=== PATIENT | female | born 1990 | race Caucasian/White ===

== ENCOUNTER 2017-02-28 23:36 | Emergency (ER) | payer SELFPAY ==
[2017-02-28] MEDS ORDERED: NS 1,000 ML IV ONE (23:54)
[2017-02-28] MEDS ORDERED: ONDANSETRON 4 MG/2 ML VIAL IVP ONE (23:55)
[2017-03-01] MEDS ORDERED: HYDROmorphONE/DILAUDID 1 MG/ML INJ IVP ONE (00:22)
[2017-03-01 00:33] LABS: PLATELET COUNT 200 10^3/uL (150-400)
[2017-03-01 01:36] VITALS: RESP 18; O2SAT 94
--- NOTE | 2017-03-01 02:21 | EDPHY ---
H & P Stated Complaint: c/o R flank pain that started to spread higher and into back since 1500 Time Seen by Provider: 03/01/17 00:17 HPI/ROS: HPI The patient presents with right-sided flank pain which began at 3:00 p.m. and got progressively worse over the last several hours. It is associated with nausea, low-grade fever. The pain radiates toward her right lower quadrant. She has not had any vomiting or diarrhea. She does report some urinary frequency, however denies dysuria. She has no history of urinary tract infection. She denies any vaginal discharge.. REVIEW OF SYSTEMS Constitutional: No fever, no chills. Eyes: No discharge. ENT: No sore throat. Cardiovascular: No chest pain, no palpitations. Respiratory: No cough, no shortness of breath. Gastrointestinal: See HPI Genitourinary: No hematuria. Musculoskeletal: No back pain. Skin: No rashes. Neurological: No headache. PMHx: Healthy Soc Hx: Lives at home with her PHYSICAL General Appearance: Alert, no distress Eyes: Pupils equal and round no pallor or injection ENT, Mouth: Mucous membranes moist Respiratory: There are no retractions, lungs are clear to auscultation Cardiovascular: Regular rate and rhythm Gastrointestinal: Abdomen is soft and with mild right lower quadrant tenderness r, no masses, bowel sounds normal Back: There is right-sided CVA tenderness Neurological: A&O, moves all extremities Skin: Warm and dry, no rashes Musculoskeletal: Neck is supple non tender Extremities: symmetrical, full range of motion Psychiatric: Patient is oriented X 3, there is no agitation Source: Patient Exam Limitations: No limitations - Medical/Surgical History Hx Asthma: No Hx Chronic Respiratory Disease: No Hx Diabetes: No Hx Cardiac Disease: No Hx Renal Disease: No Hx Cirrhosis: No Hx Alcoholism: No Hx HIV/AIDS: No Hx Splenectomy or Spleen Trauma: No Other PMH: none - Social History Smoking Status: Never smoked Constitutional: Initial Vital Signs Temperature (C) 37.1 C 02/28/17 23:40 Heart Rate 70 02/28/17 23:40 Respiratory Rate 16 02/28/17 23:40 Blood Pressure 119/83 H 02/28/17 23:40 O2 Sat (%) 99 02/28/17 23:40 O2 Delivery Mode Room Air Allergies/Adverse Reactions: No Known Allergies Allergy (Unverified 02/28/17 23:43) Home Medications: Medication Instructions Recorded levOFLOXACIN [Levofloxacin] 750 mg PO DAILY #7 tablet 03/01/17 Medical Decision Making - Diagnostics Imaging Results: Ultrasound retroperitoneal in right lower quadrant demonstrates significant amount of debris in the bladder, no hydronephrosis, no signs of appendicitis, discussed with the radiologist. Imaging: Discussed imaging studies w/ electrician sound Radiologist Differential Diagnosis: 26-year-old healthy female presents with several hours of progressive right- sided flank pain which radiates toward her abdomen associated with nausea. On exam, she is somewhat uncomfortable appearing, she does have right-sided CVA tenderness and mild tenderness in the right lower quadrant. Differential diagnosis includes pyelonephritis, cystitis, nephrolithiasis, appendicitis, less likely ovarian cyst with torsion. In the emergency department, patient was given IV fluids and pain medication. Labs were checked and were consistent with urinary tract infection. Ultrasound performed demonstrates large amount of debris in bladder consistent with urinary infection. I feel she likely has pyelonephritis given her flank pain. She was given a dose of ceftriaxone here and I will discharge her on Levaquin per our antibiotic g. She is in agreement with this plan. She is advised of return precautions. She is able to tolerate fluids. - Data Points Laboratory Results: Laboratory Results 03/01/17 00:15 03/01/17 00:15 Medications Given: Discontinued Medications Hydromorphone HCl (Dilaudid) 0.5 mg IVP EDNOW ONE Stop: 03/01/17 00:23 Last Admin: 03/01/17 00:29 Dose: 0.5 mg Sodium Chloride (Ns) 1,000 mls @ 0 mls/hr IV EDNOW ONE; Wide Open PRN Reason: Protocol Stop: 02/28/17 23:55 Last Admin: 03/01/17 00:09 Dose: 1,000 mls Ceftriaxone Sodium/Dextrose (Rocephin 1 Gm (Premix)) 50 mls @ 100 mls/hr IV EDNOW ONE PRN Reason: Protocol Stop: 03/01/17 02:46 Last Admin: 03/01/17 02:32 Dose: 50 mls Ondansetron HCl (Zofran) 4 mg IVP EDNOW ONE Stop: 02/28/17 23:56 Last Admin: 03/01/17 00:10 Dose: 4 mg Departure - Departure Disposition: Home, Routine, Self-Care Clinical Impression: Pyelonephritis Condition: Good Instructions: Kidney Infection (ED) Additional Instructions: Please make sure to drink plenty of fluids. You should take ibuprofen 400 mg with acetaminophen 650 mg every 6 hr as needed for pain. Please take the antibiotic as prescribed. I have given you the phone number of the outpatient internal medicine doctor who is on-call for the emergency department. If you did not have a regular doctor, you can make an appointment with him to be seen for a follow-up check. Referrals: Tom Shannon MD [Medical Doctor] - As per Instructions Prescriptions: levOFLOXACIN [Levofloxacin] 750 mg PO DAILY #7 tablet
[2017-03-01 02:58] VITALS: BP 90/57; PULSE 66; TEMP 98.2
== END 2017-03-01 02:58 | disposition home or self-care (01) ==
DX: N10 Acute pyelonephritis (principal); B96.89 Other specified bacterial agents as the cause of diseases classified elsewhere; E86.9 Volume depletion, unspecified
CPT/HCPCS: 96365; J0696; J1170; J2405

== ENCOUNTER 2017-12-16 08:05 | Inpatient (IN) | payer OTHER ==
[2017-12-16] MEDS ORDERED: OLIVE OIL 118 ML BTL MISC PRN (08:32)
[2017-12-16] MEDS ORDERED: OXYTOCIN/RINGERS LACTATE 1,000 ML IV PRN (08:32)
[2017-12-16] MEDS ORDERED: TERBUTALINE SULFATE 1 MG/ML VIAL IV PRN (08:32)
[2017-12-16] MEDS ORDERED: MISOPROSTOL 200 MCG TAB PR PRN (08:32)
[2017-12-16] MEDS ORDERED: EPSOM SALT 454 GM TP PRN (08:32)
[2017-12-16] MEDS ORDERED: LR 1,000 ML IV PRN (08:32)
[2017-12-16] MEDS ORDERED: LIDOCAINE 1% 300 MG/30 ML SDV SC PRN (08:32)
[2017-12-16] MEDS ORDERED: IBUPROFEN 600 MG TAB PO PRN (08:32)
--- NOTE | 2017-12-16 09:20 | PDGENHP ---
History and Physical History and Physical: CARE: [facility] HPI: Patient is a 27 yo G 1 P 0 @ 38 weeks that presents to L&D with complaints of SROM on 12/15/17 at 02:00. EDC: 12/30/17 which is based on LMP: 03/25/17 which is known and consistent with Ultrasound at 8 weeks. Her is complicated by: size<dates, +CF carrier screen (FOB is neg), rubella non-immune Review of Systems: Constitutional: Denies any fever, chills, or fatigue HEENT: denies any visual changes, difficulty swallowing, hearing loss Cardiovascular: Denies any chest pain, palpitations, leg swelling Respiratory: denies any cough, wheezing, or shortness of breathe GI: Denies any nausea, vomiting, diarrhea, constipation : denies any dysuria, urgency, frequency, vaginal bleeding Musculoskeletal: denies any muscle or bone pain Skin: denies any rashes Neuro: denies any headache, seizures, lightheadedness, dizziness, or loss of consciousness Psychiatric: denies any depression, anxiety, or SI/HI thoughts HISTORY: Previous OB history: G1 Social history: , employed full-time Family history: hx of bipolar, mom has hashimotos Past medical history: hx of pylonephritis Past surgical history: denied Medications: PNV, magnesium Allergies: NKDA LABS: Rh: O+ ABS: Neg Rubella: Non-Immune HbsAg: NR HIV: NR VDRL: NR 1hr: 112 GC: Neg Chlamydia: Neg Pap: Normal GBS: neg BMI: (prepreg) 19 PHYSICAL EXAM: Constitutional: WN, A&Ox3 HEENT: normocephalic atraumatic, supple Heart: RRR, no murmur Chest: CTA-B Skin: warm, dry, intact Abdomen: Soft, nontender, gravid SVE: 3/75/+2 in office yesterday Extremities: no edema, negative homans sign Neuro: grossly normal Psych: normal affect assessment: FHT baseline 125, +accels, no decels, moderate variability Contractions: toco - irregular Assessment: 1) 27 yo G 1 P 0 with IUP@ 38 2) PROM x 28 hours 3) GBS neg 4) Cat 1 FHR tracing Plan: 1) Admit to L&D 2) pitocin augmentation 3) anticipate
[2017-12-16 09:36] LABS: PLATELET COUNT 169 10^3/uL (150-400)
[2017-12-16] MEDS ORDERED: LR 500 ML IV PRN (09:48)
[2017-12-16] MEDS ORDERED: OXYTOCIN/RINGERS LACTATE 500 ML IV SCH (10:00)
--- NOTE | 2017-12-16 13:37 | OBPROG ---
Labor Progress Note Assessment/Plan: Assessment: Plan: Subjective/Intrapartum Course: 12/16/17 13:36 Pt is coping well with contractions, feeling a bit more uncomfortable. Reviewed comfort measures. FHT reassuring. Objective: 12/16/17 09:22 Patient ABO/Rh O POSITIVE 12/16/17 09:22 VSS FHR cat 1 Ctx q 3 min - Contraction Pattern Assessment Current Contraction Pattern: Regular (q 2-3 min) - AP Antepartum Course: 12/16/17 13:37 prolonged rupture, no signs of infection Oxytocin Orders Assessment - Pre-Induction/Augmentation Assessment Gestational Age: 38 week(s) and 0 day(s) ICD10 Worksheet Patient Problems: Problems Problem Status Onset Cystic fibrosis carrier in third trimester, antepartum Acute Rubella non-immune status, antepartum Acute Ruptured membranes, prolonged Acute Term Acute
--- NOTE | 2017-12-16 16:10 | OBPROG ---
Labor Progress Note Assessment/Plan: Assessment: Plan: Subjective/Intrapartum Course: 12/16/17 13:36 Pt is coping well with contractions, feeling a bit more uncomfortable. Reviewed comfort measures. FHT reassuring. 12/16/17 16:09 stronger contractions SVE 5/90/+1 Objective: 12/16/17 09:22 Patient ABO/Rh O POSITIVE 12/16/17 09:22 - SVE Dilation (cm): 5 Effacement (%): 90 Station: +1 Membranes: SROM Amniotic Fluid Color: Clear - Contraction Pattern Assessment Current Contraction Pattern: Regular (q 2-3 min) - FHR Assessment Kaye FHR (bpm): 130 FHR Pattern Variability: Moderate FHR Category: 1 - AP Antepartum Course: 12/16/17 13:37 prolonged rupture, no signs of infection Oxytocin Orders Assessment - Pre-Induction/Augmentation Assessment Gestational Age: 38 week(s) and 0 day(s) ICD10 Worksheet Patient Problems: Problems Problem Status Onset Cystic fibrosis carrier in third trimester, antepartum Acute Rubella non-immune status, antepartum Acute Ruptured membranes, prolonged Acute Term Acute
[2017-12-16] MEDS ORDERED: OLIVE OIL 118 ML BTL ONE (17:56)
[2017-12-16] MEDS ORDERED: LIDOCAINE 1% 300 MG/30 ML SDV ONE (17:56)
[2017-12-16] MEDS ORDERED: TERBUTALINE SULFATE 1 MG/ML VIAL ONE (17:56)
[2017-12-16] MEDS ORDERED: AMMONIA AROMATIC 1 EACH AMP IH ONE (17:56)
[2017-12-16] MEDS ORDERED: MISOPROSTOL 200 MCG TAB ONE (17:56)
[2017-12-16] MEDS ORDERED: OXYTOCIN 10 UNIT/ML VIAL ONE (17:56)
--- NOTE | 2017-12-16 19:32 | OBPROG ---
Labor Progress Note Assessment/Plan: Assessment: Plan: Subjective/Intrapartum Course: 12/16/17 13:36 Pt is coping well with contractions, feeling a bit more uncomfortable. Reviewed comfort measures. FHT reassuring. 12/16/17 16:09 stronger contractions SVE 590/+1 Objective: 12/16/17 09:22 Patient ABO/Rh O POSITIVE 12/16/17 09:22 - SVE Dilation (cm): 8 Effacement (%): 100 Station: +1 (coping well with labor support of archeology professor and ) Membranes: SROM Amniotic Fluid Color: Clear - Contraction Pattern Assessment Current Contraction Pattern: Regular (q 2-3 min) - FHR Assessment Kaye FHR (bpm): 130 FHR Pattern Variability: Moderate FHR Category: 1 - AP Antepartum Course: 12/16/17 13:37 prolonged rupture, no signs of infection Oxytocin Orders Assessment - Pre-Induction/Augmentation Assessment Gestational Age: 38 week(s) and 0 day(s) ICD10 Worksheet Patient Problems: Problems Problem Status Onset Cystic fibrosis carrier in third trimester, antepartum Acute Rubella non-immune status, antepartum Acute Ruptured membranes, prolonged Acute Term Acute
--- NOTE | 2017-12-16 21:13 | OBDEL ---
Info Type: Vaginal Presentation at Delivery: Vertex L&D Analgesia/Anesthesia Type: None GBS+: No Intrapartum Medications: Generic Name Dose Route Start Last Admin Trade Name Freq PRN Reason Stop Dose Admin Lactated Ringer's 1,000 mls @ 0 mls/hr 12/16/17 08:32 12/16/17 19:19 Lr IV 12/17/17 08:31 1,000 mls PRN PRN Administration SEE PROTOCOL CONDITIONS Protocol Per Protocol [place] Oil 118 ml 12/16/17 08:32 12/16/17 20:02 Sweet Oil MISC 06/14/18 08:31 1 btl ONCE PRN Administration perineal massage - Infant Care Provider English Teacher/VEST BUSHELER: Alice Wagner - Hospital Course Intrapartum: 12/16/17 13:36 Pt is coping well with contractions, feeling a bit more uncomfortable. Reviewed comfort measures. FHT reassuring. 12/16/17 16:09 stronger contractions SVE 5/90/+1 12/16/17 21:11 mom progressed well to complete, FHT reassuring throughout labor. Indications for Delivery: SROM (prolonged rupture of membranes) Vaginal Delivery - Delivery Provider Delivery Physician/CNM: Emelia Chase - Labor and Delivery Onset of Contractions Date: 12/16/17 Onset of Contractions Time: 15:30 Onset of Contractions Type: Augmented Rupture of Membranes Date: 12/15/17 Rupture of Membranes Time: 02:00 Rupture of Membranes Type: Spontaneous Amniotic Fluid Color: Clear Dilation Complete Date: 12/16/17 Dilation Complete Time: 20:22 Placenta Delivery Date: 12/16/17 Placenta Delivery Time: 20:53 Total Hours of Labor: 5 Data JOSHUA: 12/30/17 Gestational Age: 38 week(s) and 0 day(s) Kaye Delivery Date: 12/16/17 Delivery Time: 20:53 Sex of Infant: Female Score (1 Min): 7 Score (5 Min): 7 (NICU called after delivery for reduced tone and poor color) ICD10 Worksheet Patient Problems: Problems Problem Status Onset Cystic fibrosis carrier in third trimester, antepartum Acute (normal spontaneous vaginal delivery) Acute Rubella non-immune status, antepartum Acute Ruptured membranes, prolonged Acute Term Acute - ICD10 Problem Qualifiers (1) (normal spontaneous vaginal delivery)
[2017-12-16] MEDS ORDERED: HYDROCORTISONE 0.5% CREAM TP PRN (21:15)
[2017-12-16] MEDS: ACETAMINOPHEN 325 MG TAB PO SCH (21:34)
[2017-12-17] MEDS: IBUPROFEN 600 MG TAB PO SCH ×4 (04:55→22:57)
[2017-12-17] MEDS: ACETAMINOPHEN 325 MG TAB PO SCH ×4 (04:56→22:57)
--- NOTE | 2017-12-17 13:21 | OBPP ---
Progress Note Assessment/Plan: Assessment: 1) PP day 1 2) breast feeding fair 3) pumping because baby is <6.5# Plan: normal PP care, d/c home tomorrow 12/17/17 13:19 Subjective/ Course: 12/17/17 13:20 VSS bleeding minimal Objective: 12/16/17 09:22 Patient ABO/Rh O POSITIVE 12/16/17 09:22 Temp Pulse Resp BP Pulse Ox 36.1 C 100 15 131/87 H 97 12/17/17 08:00 12/17/17 08:00 12/17/17 08:00 12/17/17 08:00 12/17/17 08:00 Uterine Position/Fundal Height: At Umbilicus Uterine Tone: Firm
[2017-12-18] MEDS: IBUPROFEN 600 MG TAB PO SCH ×2 (06:53→11:51)
[2017-12-18] MEDS: ACETAMINOPHEN 325 MG TAB PO SCH ×2 (06:53→11:54)
[2017-12-18 08:33] VITALS: BP 112/82
[2017-12-18] MEDS ORDERED: MEASLES,MUMPS&RUBELLA VACC/PF 0.5 ML VIAL SC ONE (11:04)
--- NOTE | 2017-12-18 11:11 | OBGCSDC ---
General Delivery Information - General Info : 1 Para: 1 Abortions: 0 Type: Vaginal L&D Analgesia/Anesthesia Type: None Admission Date: 12/16/17 Labs: Patient ABO/Rh O POSITIVE 12/16/17 09:22 Hct 41.0 % (38.0-47.0) 12/16/17 09:22 - Hospital Course Antepartum: 12/16/17 13:37 prolonged rupture, no signs of infection Intrapartum: 12/16/17 13:36 Pt is coping well with contractions, feeling a bit more uncomfortable. Reviewed comfort measures. FHT reassuring. 12/16/17 16:09 stronger contractions SVE 590/+1 12/16/17 21:11 mom progressed well to complete, FHT reassuring throughout labor. : 12/17/17 13:20 VSS bleeding minimal 12/18/17 11:08 S) Pt doing well, reports min pain and bleeding. she is ambulating and voiding without difficulty. She is . She desires discharge home today. O) VSS, afebrile constitutional: WNWF, A&Ox3 HEENT: normocephalic, atraumatic, supple Heart: RRR, No murmur Chest: CTA-B Abdomen: Soft, nontender Uterus: Firm at U-2 Lochia: Minimal rubra Perineum: Intact, healing well Extremities: Trace edema, and negative Bess's sign Neuro: Grossly normal A) 27 year-old P1 S/P PPD#2 P) Discharge home today Continue Pelvic rest x6wks Discussed danger signs (infection, preeclampsia, depression, heavy bleeding, etc) RTO in 4/6 weeks Vaginal - Delivery Provider Delivery Physician/CNM: Emelia Chase - Diagnosis Labor: Augmented Rupture of Membranes Type: Spontaneous Amniotic Fluid Color: Clear Data JOSHUA: 12/30/17 Gestational Age: 38 week(s) and 2 day(s) Kaye Delivery Date: 12/16/17 Delivery Time: 20:53 Sex of Infant: Female [place] Weight (gm): 2852 g Score (1 Min): 7 Score (5 Min): 7 Discharge Information - Discharge Information Prescriptions: Docusate Sodium [Colace 100 MG (*)] 100 mg PO BID #60 cap Ibuprofen [Motrin (*)] 600 mg PO Q6H #30 tab Condition: Good Instruction/Follow Up: Two Weeks, Four Weeks, Six Weeks
[2017-12-18] MEDS ORDERED: DOCUSATE SODIUM 100 MG CAP PO SCH (11:15)
== END 2017-12-18 12:45 | disposition home or self-care (01) | DRG 807 ==
LOC: FLD 08:05 → OBSVTOIN 08:34 → FOB 23:30
PROVIDERS: ADMIT Advanced Practice Midwife; ATTEND Advanced Practice Midwife
PROC: 10E0XZZ Delivery of Products of Conception, External Approach (ICD-10-PCS; principal; 2017-12-16)
DX: O42.92 Full-term premature rupture of membranes, unspecified as to length of time between rupture and onset of labor (principal); Z3A.38 38 weeks gestation of pregnancy; Z37.0 Single live birth
CPT/HCPCS: J2590; J3105

== ENCOUNTER → 2018-01-08 | Outpatient (CLI) | payer OTHER | LOC: FLACT 12:13 | PROVIDERS: ATTEND Advanced Practice Midwife | DX: Z39.1 Encounter for care and examination of lactating mother (principal) | CPT/HCPCS: G0463 ==